=== PATIENT | female | born 1975 | race Caucasian/White ===

== ENCOUNTER 2016-10-29 00:44 | Emergency (ER) | payer MEDICAID ==
[2016-10-29 01:08] VITALS: BP 136/89; PULSE 96; RESP 18; TEMP 97.9; O2SAT 100; BMI 25.2
--- NOTE | 2016-10-29 01:15 | ED PDOC ---
Arrival/HPI <Nathanael Herman - Last Filed: 10/29/16 03:35> - General Historian: Patient, Family (daughter) - History of Present Illness Context: Home <Ede Martinez - Last Filed: 11/03/16 22:25> - General Chief Complaint: Anxiety Time Seen by Provider: 10/29/16 00:55 - History of Present Illness Narrative History of Present Illness (Text): 10/29/16 01:12 This 41 yo female with pmh anxiety, presents to this ED c/o anxiety, feeling palpitation, and feeling nervousness. Patient admits symptoms are intermittent for several years since her divorce x 4 years ago. daughter is at bedside. They are requesting PES evaluation. (Ede Martinez) Past Medical History - Provider Review Nursing Documentation Reviewed: Yes - Infectious Disease Hx of Infectious Diseases: None - Tetanus Immunization Tetanus Immunization: Unknown - Past Medical History Past Medical History: No Previous - Cardiac Hx Cardiac Disorders: Yes Hx Hypertension: Yes - Pulmonary Hx Respiratory Disorders: Yes Hx Asthma: Yes - Neurological Hx Neurological Disorder: No - HEENT Hx HEENT Disorder: No - Renal Hx Renal Disorder: No - Endocrine/Metabolic Hx Endocrine Disorders: No - Hematological/Oncological Hx Blood Disorders: No - Integumentary Hx Dermatological Disorder: No - Musculoskeletal/Rheumatological Hx Falls: No - Gastrointestinal Hx Gastrointestinal Disorders: No - Genitourinary/Gynecological Hx Genitourinary Disorders: No - Psychiatric Hx Anxiety: Yes Hx Depression: Yes Hx Panic Disorder: Yes Hx Substance Use: No - Past Surgical History Past Surgical History: No Previous - Anesthesia Hx Anesthesia: No - Suicidal Assessment Feels Threatened In Home Enviroment: No <Ede Martinez - Last Filed: 11/03/16 22:25> Family/Social History - Physician Review Nursing Documentation Reviewed: Yes Family/Social History: No Known Family HX Smoking Status: Never Smoked Hx Alcohol Use: No Hx Substance Use: No Hx Substance Use Treatment: No <Ede Martinez - Last Filed: 11/03/16 22:25> Allergies/Home Meds <Nathanael Herman - Last Filed: 10/29/16 03:35> <Ede Martinez - Last Filed: 11/03/16 22:25> Allergies/Adverse Reactions: Allergies No Known Allergies Allergy (Verified 02/28/16 21:27) Home Medications: Home Meds Medication Instructions Recorded Confirmed No Known Home Med 10/29/16 10/29/16 Review of Systems - Review of Systems Constitutional: Normal. absent: Fatigue, Weight Change, Fevers, Night Sweats Eyes: Normal. absent: Vision Changes ENT: Normal Respiratory: Normal. absent: SOB, Cough, Sputum, Wheezing Cardiovascular: Normal Gastrointestinal: Normal. absent: Abdominal Pain, Nausea, Vomiting Genitourinary Female: Normal. absent: Dysuria, Frequency, Hematuria Musculoskeletal: Normal Skin: Normal. absent: Rash Neurological: Normal. absent: Headache, Dizziness, Focal Weakness, Gait Changes , Speech Changes, Facial Droop, Disequilibrium, Seizure Endocrine: Normal Hemo/Lymphatic: Normal Psychiatric: Anxiety, Depression. absent: Suicidal Ideation <Ede Martinez - Last Filed: 11/03/16 22:25> Physical Exam Temperature: Afebrile Blood Pressure: Normal Pulse: Regular Respiratory Rate: Normal Appearance: Positive for: Well-Appearing, Non-Toxic, Comfortable Pain Distress: None Mental Status: Positive for: Alert and Oriented X 3 - Systems Exam Head: Present: Atraumatic, Normocephalic Pupils: Present: PERRL Extroacular Muscles: Present: EOMI Conjunctiva: Present: Normal Mouth: Present: Moist Mucous Membranes Neck: Present: Normal Range of Motion Respiratory/Chest: Present: Clear to Auscultation, Good Air Exchange. No: Respiratory Distress, Accessory Muscle Use Cardiovascular: Present: Regular Rate and Rhythm, Normal S1, S2. No: Murmurs Abdomen: Present: Normal Bowel Sounds. No: Tenderness, Distention, Peritoneal Signs Back: Present: Normal Inspection Upper Extremity: Present: Normal Inspection. No: Cyanosis, Edema Lower Extremity: Present: Normal Inspection. No: Edema Neurological: Present: GCS=15, CN II-XII Intact, Speech Normal Skin: Present: Warm, Dry, Normal Color. No: Rashes Psychiatric: Present: Alert, Oriented x 3, Anxious, Depressed Mood. No: Suicidal Ideation, Homicidal Ideation, Delusional, Hallucinations <Ede Martinez - Last Filed: 11/03/16 22:25> Vital Signs Temp Pulse Resp BP Pulse Ox 10/29/16 01:00 97.9 F 96 H 18 136/89 100 Medical Decision Making <Nathanael Herman - Last Filed: 10/29/16 03:35> Re-evaluation Time: 02:00 - Lab Interpretations I have reviewed the lab results: Yes Interpretation: No clinic. lab abnormalty <Ede Martinez - Last Filed: 11/03/16 22:25> ED Course and Treatment: Pending PES evaluation. Dr. Herman with f/u patient (Ede Martinez) - Lab Interpretations Microbiology Results: Microbiology Results 10/29/16 02:56 Urine,Clean Catch Urine Culture - Final 10-50,000 CFU/ML. MULTIPLE SPECIES. PROBABLE CONTAMINATION. Lab Results: 10/29/16 01:13 10/29/16 02:00 Lab Results 10/29/16 02:56: Urine Opiates Screen Negative, Urine Methadone Screen Negative, Ur Barbiturates Screen Negative, Ur Phencyclidine Scrn Negative, Ur Amphetamines Screen Negative, U Benzodiazepines Scrn Negative, U Oth Cocaine Metabols Negative, U Cannabinoids Screen Negative 10/29/16 02:56: Urine Color Yellow, Urine Appearance Sl cloudy, Urine pH 6.5, Ur Specific [place] 1.015, Urine Protein 30 H, Urine Glucose (UA) Negative, Urine Ketones Negative, Urine Blood Moderate H, Urine Nitrate Negative, Urine Bilirubin Negative, Urine Urobilinogen 0.2, Ur Leukocyte Esterase Trace H, Urine RBC 1 - 3, Urine WBC 5 - 10, Ur Epithelial Cells 4 - 5, Urine Bacteria Small, Urine HCG, Qual Negative 10/29/16 02:00: Alcohol, Quantitative < 10 10/29/16 02:00: Salicylates < 1 L, Acetaminophen < 10.0 L 10/29/16 02:00: Sodium 137, Potassium 3.5 L, Chloride 104, Carbon Dioxide 20 L, Anion Gap 17, BUN 8, Creatinine 0.6, Est GFR ( Amer) > 60, Est GFR (Non- Af Amer) > 60, Random Glucose 100, Calcium 9.3, Total Bilirubin 0.4, AST 22, ALT 35, Alkaline Phosphatase 63, Total Protein 7.5, Albumin 4.4, Globulin 3.1, Albumin/Globulin Ratio 1.4 10/29/16 01:13: WBC 7.8, RBC 4.84, Hgb 14.0, Hct 38.9, MCV 80.4, MCH 28.9, MCHC 36.0, RDW 12.6, Plt Count 233, MPV 9.8, Gran % 50.0, Lymph % (Auto) 41.2 H, [place] % (Auto) 6.4 H, Eos % (Auto) 1.9, Baso % (Auto) 0.5, Gran # 3.87, Lymph # 3.2, Island # 0.5, Eos # 0.2, Baso # 0.04 - Medication Orders Current Medication Orders: Discontinued Medications Home Med (*Refrigerator Open) Confirm Administered Dose 1 unit XX .STK-MED ONE Stop: 10/29/16 06:00 Home Med (*Refrigerator Open) Confirm Administered Dose 1 unit XX .STK-MED ONE Stop: 10/29/16 07:34 Home Med (*Refrigerator Open) Confirm Administered Dose 1 unit XX .STK-MED ONE Stop: 10/29/16 10:14 Disposition/Present on Arrival - Disposition Disposition Time: 03:35 <Nathanael Herman - Last Filed: 10/29/16 03:35> - Present on Arrival Any Indicators Present on Arrival: No History of DVT/PE: No History of Uncontrolled Diabetes: No Urinary Catheter: No History of Decub. Ulcer: No History Surgical Site Infection Following: None - Disposition Have Diagnosis and Disposition been Completed?: Yes Patient Plan: Discharge <Ede Martinez - Last Filed: 11/03/16 22:25> - Disposition Diagnosis: Anxiety Disposition: HOME/ ROUTINE Condition: GOOD Discharge Instructions (ExitCare): Anxiety (ED) Referrals: Cande Duran MD [Primary Care Provider] - Follow up with primary
[2016-10-29 02:10] LABS: ADD MANUAL DIFF? NO; BASO # 0.04 K/mm3 (0.0-2.0); BASO % 0.5 % (0.0-3.0); EOS # 0.2 (0.0-0.7); EOS % 1.9 % (1.5-5.0); GRAN # 3.87 (1.4-6.5); HEMATOCRIT 38.9 % (36.0-48.0); LYMPH # 3.2 (1.2-3.4); LYMPH % 41.2 % (22.0-35.0); MEAN CELL VOLUME 80.4 fL (80.0-105.0); MEAN CORPUSCULAR HEMOGLOBIN 28.9 pg (25.0-35.0); MEAN PLATELET VOLUME 9.8 fl (7.0-11.0); MONO # 0.5 (0.1-0.6); MONO % 6.4 % (1.0-6.0); PLATELET COUNT 233 10^3/uL (120.0-450.0); RED CELL DISTRIBUTION WIDTH 12.6 % (11.5-14.5); WHITE BLOOD COUNT 7.8 10^3/ul (4.5-11.0)
[2016-10-29 02:24] LABS: ALB/GLOB RATIO 1.4 (1.1-1.8); ALKALINE PHOSPHATASE 63 U/L (38-133); ALT/SGPT 35 U/L (7-56); AST/SGOT 22 U/L (15-39); BILIRUBIN,TOTAL 0.4 mg/dL (0.2-1.3); BLOOD UREA NITROGEN 8 mg/dL (7-21); CALCIUM 9.3 mg/dL (8.4-10.5); CARBON DIOXIDE 20 mmol/L (21-33); CHLORIDE 104 mmol/L (95-110); GFR AFRICAN-AMERICAN > 60; GLUCOSE,RANDOM 100 mg/dL (70-110); POTASSIUM 3.5 mmol/L (3.6-5.0); SODIUM 137 mmol/L (132-148); TOTAL PROTEIN 7.5 g/dL (5.8-8.3)
[2016-10-29 03:24] LABS: PH,URINE 6.5 (4.7-8.0); URINE BILIRUBIN NEGATIVE (NEGATIVE); URINE BLOOD MODERATE (NEGATIVE); URINE GLUCOSE (UA) NEGATIVE (NEGATIVE); URINE KETONE NEGATIVE (NEGATIVE); URINE LEUKOCYTE ESTERASE TRACE Leu/uL (NEGATIVE); URINE PROTEIN 30 mg/dL (<30 mg/dL); URINE UROBILINOGEN 0.2 E.U./dL (<1 E.U./dL)
[2016-10-29 03:30] LABS: URINE APPEARANCE SL CLOUDY (CLEAR); URINE COLOR YELLOW (YELLOW)
[2016-10-29 03:47] LABS: URINE BACTERIA SMALL (NEG)
--- NOTE | 2016-10-29 10:49 | CARD ---
APPROVED REPORT EKG Measurement Heart [id number] <Conclusion> Normal sinus rhythm Normal ECG
== END 2016-10-29 04:39 | disposition home or self-care (01) ==
LOC: ED 00:44
DX: F41.9 Anxiety disorder, unspecified (principal)